=== PATIENT | female | born 1985 | race Hispanic/Latino ===

== ENCOUNTER 2018-11-22 04:54 | Emergency (ER) | payer OTHER, SELFPAY ==
[2018-11-22] MEDS ORDERED: Ondansetron PF 4 MG/2 ML Vial ONE (05:34)
== END 2018-11-22 06:55 | disposition home or self-care (01) ==
LOC: ERS 04:54
DX: F10.129 Alcohol abuse with intoxication, unspecified (principal)
CPT/HCPCS: 96361; 96374; J2405

== ENCOUNTER 2020-01-22 18:48 | Emergency (ER) | payer SELFPAY ==
[2020-01-22 19:42] LABS: #Basophils 0.1 thou/uL (0.0-0.2); #Eosinphils 0.3 thou/uL (0.0-0.7); #Lymphocytes 3.6 thou/uL (1.20-3.40); #Monocytes 0.8 thou/uL (0.11-0.59); #Neutrophils 8.3 thou/uL (1.40-6.50); %Basophils 0.7 % (0.0-1.0); %Eosinophils 2.2 % (0.0-10.0); %Lymphocytes 27.7 % (21.0-51.0); %Monocytes 5.9 % (0.0-10.0); %Neutrophils 63.6 % (42.0-75.0); Hemoglobin 14.1 g/dL (12.0-16.0); Mean Corpuscular HGB CONC 33.5 g/dL (32.0-36.0); Mean Corpuscular Hemoglobin 28.9 pg (27.0-31.0); Mean Corpuscular Volume 86.3 fL (78.0-98.0); Mean Platelet Volume 7.5 fL (7.4-10.4); Platelet Count 316 thou/uL (130-400); RBC Distribution Width 13.4 % (11.5-14.5); Red Blood Cell (RBC) Count 4.89 mill/uL (4.20-5.40); White Blood Cell (WBC) Count 13.1 thou/uL (4.8-10.8)
[2020-01-22 19:55] LABS: Bacteria/HPF None Seen HPF (None Seen); Bilirubin Negative (Negative); Blood, Urine 2+ (Negative); Clarity Clear (Clear); Glucose, Urine (Dipstick) Normal (Negative); Leukocyte 75 Leu/uL (Negative); Nitrite Negative (Negative); Pregnancy Test - Urine (BHCG) POSITIVE (Negative); Pregu Control Background? CLEAR/WHITE (CLR/WHITE); Pregu Control Bar Appear? YES (CONTROL BAR); Protein, Urine (Dipstick) Negative (Neg-Trace); RBC/HPF 0-3 HPF (0-3); Specific Gravity 1.021 (1.002-1.036); Urobilinogen Normal mg/dL (Less than 2); WBC/HPF 0-3 HPF (0-3)
[2020-01-22 20:04] LABS: ALT (SGPT) 22 U/L (8-55); AST (SGOT) 17 U/L (5-34); Albumin 4.1 g/dL (3.5-5.0); Alkaline Phosphatase 108 U/L (40-110); Anion Gap 13 mmol/L (10-20); BUN (Urea Nitrogen) 8 mg/dL (7.0-18.7); Bilirubin, Total 0.2 mg/dL (0.2-1.2); Calc. Creatinine Clearance 0 mL/min (70-130); Calcium 8.5 mg/dL (7.8-10.44); Carbon Dioxide 21 mmol/L (22-29); Chloride 109 mmol/L (98-107); Estimated GFR-MDRD Greater than 90; Globulin 2.9 g/dL (2.4-3.5); Glucose 97 mg/dL (70-105); Potassium 3.5 mmol/L (3.5-5.1); Sodium 139 mmol/L (136-145)
--- NOTE | 2020-01-22 21:58 | ULT ---
US Pelvic Transvag History: Pelvic pain Comparison: None. Findings: Real-time grayscale, color and spectral analysis of the pelvis performed transabdominal and transvaginal approach. The ovaries are normal with adequate vascular flow. No adnexal mass. Endometrium is thickened up 2 centimeter. No free fluid in the pelvis. No intrauterine . No free fluid in the pelvis. No intrauterine . Impression: 1. Normal adnexa without mass or ectopic. 2. No significant free fluid in pelvis. 3. Thickened endometrium can be seen with early although no IUP would be expected to be see n with such a low hCG. Close follow-up hCG and ultrasound recommended.
[2020-01-24 01:19] LABS: Chlamydia by PCR Not Detected (NotDetected); GC by PCR Not Detected (NotDetected)
== END 2020-01-22 23:38 | disposition home or self-care (01) ==
LOC: ERS 18:48
DX: O23.591 Infection of other part of genital tract in pregnancy, first trimester (principal); B96.89 Other specified bacterial agents as the cause of diseases classified elsewhere
CPT/HCPCS: 76856; 80053; 81003; 81015; 81025; 84702; 85025; 87480; 87491; 87510; 87591; 87660

== ENCOUNTER 2020-02-20 20:20 | Emergency (ER) | payer SELFPAY ==
[2020-02-20 20:52] LABS: #Basophils 0.1 thou/uL (0.0-0.2); #Eosinphils 0.3 thou/uL (0.0-0.7); #Lymphocytes 3.7 thou/uL (1.20-3.40); #Neutrophils 8.7 thou/uL (1.40-6.50); %Basophils 0.5 % (0.0-1.0); %Eosinophils 1.9 % (0.0-10.0); %Lymphocytes 27.2 % (21.0-51.0); %Monocytes 7.2 % (0.0-10.0); %Neutrophils 63.2 % (42.0-75.0); Hemoglobin 12.9 g/dL (12.0-16.0); Mean Corpuscular HGB CONC 33.9 g/dL (32.0-36.0); Mean Corpuscular Volume 88.4 fL (78.0-98.0); Mean Platelet Volume 7.3 fL (7.4-10.4); Platelet Count 324 thou/uL (130-400); RBC Distribution Width 13.6 % (11.5-14.5); Red Blood Cell (RBC) Count 4.31 mill/uL (4.20-5.40); White Blood Cell (WBC) Count 13.7 thou/uL (4.8-10.8)
[2020-02-20 21:04] LABS: Bilirubin Negative (Negative); Blood, Urine Trace (Negative); Clarity Clear (Clear); Glucose, Urine (Dipstick) Normal (Negative); Leukocyte Negative Leu/uL (Negative); Nitrite Negative (Negative); Protein, Urine (Dipstick) Negative (Neg-Trace); RBC/HPF 0-3 HPF (0-3); Squamous Epithelial 0-3 HPF (0-3); Urobilinogen Normal mg/dL (Less than 2); WBC/HPF 0-3 HPF (0-3)
[2020-02-20 21:05] LABS: Bacteria/HPF Rare-Few HPF (None Seen)
[2020-02-20 21:06] LABS: ALT (SGPT) 27 U/L (8-55); AST (SGOT) 19 U/L (5-34); Albumin 3.9 g/dL (3.5-5.0); Alkaline Phosphatase 110 U/L (40-110); Anion Gap 13 mmol/L (10-20); BUN (Urea Nitrogen) 12 mg/dL (7.0-18.7); Bilirubin, Total 0.2 mg/dL (0.2-1.2); Calc. Creatinine Clearance 0 mL/min (70-130); Calcium 8.9 mg/dL (7.8-10.44); Carbon Dioxide 20 mmol/L (22-29); Chloride 106 mmol/L (98-107); Estimated GFR-MDRD 90; Glucose 98 mg/dL (70-105); Potassium 3.5 mmol/L (3.5-5.1); Protein, Total 6.9 g/dL (6.0-8.3); Sodium 135 mmol/L (136-145)
[2020-02-20] MEDS ORDERED: Ketorolac Tromethamine 30 MG/ML VIAL ONE (21:33)
[2020-02-20] MEDS ORDERED: Ondansetron ODT 4 MG TAB ONE (21:33)
[2020-02-20] MEDS ORDERED: Acetaminophen 500 MG TAB ONE (21:33)
--- NOTE | 2020-02-21 09:02 | ULT ---
PELVIC ULTRASOUND: COMPARISON: 01/28/2020. HISTORY: Right upper quadrant abdominal pain. Decreasing HCG level. TECHNIQUE: Multiplanar, gallegos scale, and color Doppler images were obtained in a transvaginal pelvic ultrasound. Spectral analysis of the Doppler waveforms of the ovaries was performed. FINDINGS: The uterus is normal in size and appearance without focal abnormality. The endometrial stripe is nor mal in thickness measuring 10 mm. A small amount of free fluid is seen in the pelvis. Both ovaries are normal in size and appearance a nd demonstrate normal internal flow. The previously seen region in the right adnexal region on the p rior ultrasound was not seen on today's examination. IMPRESSION: No significant pelvic abnormality. POS: [facility]
== END 2020-02-20 22:58 | disposition home or self-care (01) ==
LOC: ERS 20:20
DX: O20.0 Threatened abortion (principal); Z3A.13 13 weeks gestation of pregnancy
CPT/HCPCS: 36415; 76856; 80053; 81003; 81015; 84702; 85025; 96372; J1885; Q0162

== ENCOUNTER 2020-11-21 21:20 | Emergency (ER) | payer SELFPAY ==
[2020-11-22 05:14] LABS: SARS-CoV-2 PCR by NAA DETECTED (NotDetected)
== END 2020-11-21 22:40 | disposition home or self-care (01) ==
LOC: ERS 21:20
DX: U07.1 COVID-19 (principal)
CPT/HCPCS: 87635; 99284; U0003; U0005

== ENCOUNTER 2022-05-25 11:11 | Emergency (ER) | payer SELFPAY | END 2022-05-25 12:39 | disposition left against medical advice (07) | LOC: ERS 11:11 | DX: Z53.21 Procedure and treatment not carried out due to patient leaving prior to being seen by health care provider (principal) ==

== ENCOUNTER 2022-06-27 20:48 | Inpatient (IN) | payer SELFPAY ==
[2022-06-27 21:51] LABS: #Eosinphils 0.2 thou/uL (0.0-0.7); #Lymphocytes 3.8 thou/uL (1.20-3.40); #Monocytes 0.7 thou/uL (0.11-0.59); #Neutrophils 7.1 thou/uL (1.40-6.50); %Basophils 0.4 % (0.0-1.0); %Eosinophils 1.7 % (0.0-10.0); %Monocytes 6.3 % (0.0-10.0); %Neutrophils 59.7 % (42.0-75.0); Hemoglobin 13.6 g/dL (12.0-16.0); Mean Corpuscular HGB CONC 34.1 g/dL (32.0-36.0); Mean Corpuscular Volume 87.9 fL (78.0-98.0); Mean Platelet Volume 7.1 fL (7.4-10.4); Platelet Count 306 thou/uL (130-400); RBC Distribution Width 13.2 % (11.5-14.5); Red Blood Cell (RBC) Count 4.52 mill/uL (4.20-5.40); White Blood Cell (WBC) Count 11.9 thou/uL (4.8-10.8)
[2022-06-27 22:14] LABS: ALT (SGPT) 35 U/L (8-55); AST (SGOT) 27 U/L (5-34); Alkaline Phosphatase 109 U/L (40-110); Anion Gap 16 mmol/L (10-20); BUN (Urea Nitrogen) 15 mg/dL (7.0-18.7); Bilirubin, Total 0.4 mg/dL (0.2-1.2); Calc. Creatinine Clearance 0 mL/min (70-130); Carbon Dioxide 21 mmol/L (22-29); Chloride 105 mmol/L (98-107); Estimated GFR 99; Globulin 3.4 g/dL (2.4-3.5); Glucose 104 mg/dL (70-105); Potassium 3.6 mmol/L (3.5-5.1); Protein, Total 7.4 g/dL (6.0-8.3); Sodium 138 mmol/L (136-145)
[2022-06-27] MEDS ORDERED: HYDROcodone/Acetaminophen 5/325 mg Tablet ONE (22:59)
[2022-06-27] MEDS ORDERED: Acetaminophen 325 MG TAB ONE (23:00)
[2022-06-27] MEDS ORDERED: Labetalol HCl 100 MG/20 ML VIAL SLOW IVP PRN (23:21)
[2022-06-27] MEDS ORDERED: Ondansetron PF 4 MG/2 ML Vial IVP PRN (23:25)
[2022-06-27] MEDS ORDERED: Guaifenesin DM 100-10/5 ML UDCUP PO PRN (23:25)
[2022-06-27] MEDS ORDERED: Bisacodyl 10 MG SUPP PR PRN (23:25)
[2022-06-27] MEDS ORDERED: Bisacodyl 5 MG TAB PO PRN (23:25)
[2022-06-27] MEDS ORDERED: Calcium Carbonate 500 MG ChewTAB PO PRN (23:25)
[2022-06-27] MEDS ORDERED: Ondansetron ODT 4 MG TAB PO PRN (23:25)
[2022-06-27] MEDS ORDERED: Acetaminophen 650 MG Suppository PR PRN (23:25)
[2022-06-27] MEDS ORDERED: Senokot S 8.6-50 MG TAB PO PRN (23:25)
[2022-06-28 00:23] VITALS: BMI 35.4
[2022-06-28] MEDS: Sodium Chloride 0.9% 1,000 ML IV SCH ×2 (00:40→14:00)
[2022-06-28 01:30] LABS: Pregnancy Test - Urine (BHCG) Negative (Negative); Pregu Control Background? CLEAR/WHITE (CLR/WHITE); Pregu Control Bar Appear? YES (CONTROL BAR); Specific Gravity 1.013 (1.002-1.036)
[2022-06-28 01:33] LABS: Amphetamine Not Detected (NotDetected); Barbiturates Screen Not Detected (NotDetected); Benzodiazepine Screen Not Detected (NotDetected); Cocaine Metabolite Screen Not Detected (NotDetected); Methadone Not Detected (NotDetected); Methamphetamine Not Detected (NotDetected); Opiate Screen Detected (NotDetected); Oxycodone Screen Not Detected (NotDetected); Phencyclidine (PCP) Not Detected (NotDetected); THC/Cannabinoid Screen Not Detected (NotDetected); Tricyclic Screen Not Detected (NotDetected)
[2022-06-28 06:03] LABS: #Basophils 0.1 thou/uL (0.0-0.2); #Eosinphils 0.3 thou/uL (0.0-0.7); #Lymphocytes 3.4 thou/uL (1.20-3.40); #Monocytes 0.6 thou/uL (0.11-0.59); #Neutrophils 5.4 thou/uL (1.40-6.50); %Basophils 0.7 % (0.0-1.0); %Eosinophils 2.8 % (0.0-10.0); %Lymphocytes 35.1 % (21.0-51.0); %Monocytes 6.1 % (0.0-10.0); %Neutrophils 55.4 % (42.0-75.0); Hemoglobin 12.6 g/dL (12.0-16.0); Mean Corpuscular HGB CONC 33.1 g/dL (32.0-36.0); Mean Corpuscular Hemoglobin 29.2 pg (27.0-31.0); Mean Corpuscular Volume 88.3 fL (78.0-98.0); Mean Platelet Volume 7.2 fL (7.4-10.4); Platelet Count 285 thou/uL (130-400); RBC Distribution Width 13.1 % (11.5-14.5); White Blood Cell (WBC) Count 9.7 thou/uL (4.8-10.8)
[2022-06-28 06:09] LABS: Hemoglobin A1c 5.7 % (4.0-6.0)
[2022-06-28 06:27] LABS: Cardiac Risk 4.3 (Less than 4.5)
[2022-06-28] MEDS: Famotidine 20 MG TAB PO SCH ×2 (08:29→21:03)
[2022-06-28] MEDS: Aspirin 81 mg Enteric Coated Tablet PO SCH (08:29)
[2022-06-28] MEDS: Famotidine/PF 20 mg/2ml Vial SLOW IVP SCH ×2 (08:29→21:21)
[2022-06-28] MEDS: Heparin 5,000 UNITS/ML VIAL SC SCH ×2 (08:29→21:02)
[2022-06-28] MEDS: Acetaminophen 325 MG TAB PO PRN ×3 (08:38→21:03)
[2022-06-28] MEDS ORDERED: Magnevist 469MG/ML 20 ML VIAL ONE (15:31)
[2022-06-28 18:32] LABS: PTT 31.4 sec (22.9-36.1); Prothrombin Time 13.4 sec (12.0-14.7)
[2022-06-28 18:33] LABS: D-Dimer Test Less than 0.27 *mcg/mL (0.27-0.43)
[2022-06-28] MEDS: Atorvastatin Calcium 40 MG TAB PO SCH (21:03)
[2022-06-28] MEDS ORDERED: Topiramate 25 MG TAB PO SCH (23:00)
[2022-06-29] MEDS: Acetaminophen 325 MG TAB PO PRN (06:18)
[2022-06-29] MEDS: Famotidine 20 MG TAB PO SCH ×2 (08:32→21:42)
[2022-06-29] MEDS: Heparin 5,000 UNITS/ML VIAL SC SCH ×2 (08:32→21:42)
[2022-06-29] MEDS: Topiramate 25 MG TAB PO SCH ×2 (08:32→21:41)
[2022-06-29] MEDS: Aspirin 81 mg Enteric Coated Tablet PO SCH (08:32)
[2022-06-29] MEDS: Famotidine/PF 20 mg/2ml Vial SLOW IVP SCH ×2 (08:33→21:41)
[2022-06-29] MEDS: diphenhydrAMINE 50 MG/ML VIAL IVP SCH ×2 (15:45→21:32)
[2022-06-29] MEDS: Prochlorperazine 10 MG/2 ML VIAL IVP SCH ×2 (15:45→21:48)
[2022-06-29] MEDS ORDERED: ALPRAZolam 0.5 MG TAB PO SCH (18:30)
[2022-06-29] MEDS ORDERED: ALPRAZolam 0.25 MG TAB PO SCH (18:45)
[2022-06-29] MEDS: Atorvastatin Calcium 40 MG TAB PO SCH (21:41)
[2022-06-30] MEDS: diphenhydrAMINE 50 MG/ML VIAL IVP SCH ×2 (03:10→09:39)
[2022-06-30] MEDS: Prochlorperazine 10 MG/2 ML VIAL IVP SCH ×2 (03:10→09:43)
[2022-06-30] MEDS: Famotidine 20 MG TAB PO SCH (09:38)
[2022-06-30] MEDS: Aspirin 81 mg Enteric Coated Tablet PO SCH (09:38)
[2022-06-30] MEDS: Topiramate 25 MG TAB PO SCH (09:39)
[2022-06-30] MEDS: Famotidine/PF 20 mg/2ml Vial SLOW IVP SCH (09:39)
[2022-06-30] MEDS: Heparin 5,000 UNITS/ML VIAL SC SCH (09:41)
[2022-06-30] MEDS: Acetaminophen 325 MG TAB PO PRN (09:42)
[2022-06-30 15:55] VITALS: BP 101/64; TEMP 98.1
[2022-06-30 18:47] LABS: Cardiolipin IgA Ab 2.9 APL-U/mL (<14 Negative); Cardiolipin IgG Ab 1.4 GPL-U/mL (<10 Negative); Cardiolipin IgM Ab 1.1 MPL-U/mL (<10 Negative); EliA APS New Method **** NEW METHOD ****
== END 2022-06-30 16:47 | disposition home or self-care (01) | DRG 74 ==
LOC: ERS 20:48 → OBSVTOIN 23:06 → NEURO 23:06
PROVIDERS: ADMIT Internal Medicine; ATTEND Internal Medicine
DX: G51.0 Bell's palsy (principal); G45.9 Transient cerebral ischemic attack, unspecified; I69.354 Hemiplegia and hemiparesis following cerebral infarction affecting left non-dominant side; Z20.822 Contact with and (suspected) exposure to COVID-19; D72.829 Elevated white blood cell count, unspecified; F41.9 Anxiety disorder, unspecified; G47.00 Insomnia, unspecified; H02.409 Unspecified ptosis of unspecified eyelid; R51.9 Headache, unspecified; Z98.51 Tubal ligation status; I69.392 Facial weakness following cerebral infarction; I69.312 Visuospatial deficit and spatial neglect following cerebral infarction
CPT/HCPCS: 36415; 70450; 70553; 80053; 80061; 80306; 81025; 83036; 83090; 84484; 85025; 85240; 85300; 85303; 85305; 85307; 85379; 85598; 85610; 85730; 86147; 93005; 93306; 93880; 95816; 95819; 95957; A9579; J0780; J1200; J1644; J7050; S0028; U0003; U0005

== ENCOUNTER 2023-09-15 23:28 | Inpatient (IN) | payer MEDICAID, SELFPAY ==
[~2023-09-15 23:28] MED LIST: Iopamidol 370 76% 100 ML VIAL ONE
[2023-09-15 23:54] LABS: Hematocrit 37.4 % (36.0-47.0); Hemoglobin 12.4 g/dL (12.0-16.0); Mean Corpuscular HGB CONC 33.2 g/dL (32.0-36.0); Mean Corpuscular Hemoglobin 27.7 pg (27.0-31.0); Mean Corpuscular Volume 83.5 fl (78.0-98.0); Mean Platelet Volume 9.3 fL (7.4-10.4); Platelet Count 346 10x3/uL (130-400); RBC Distribution Width 15.3 % (11.5-14.5); Red Blood Cell (RBC) Count 4.48 mill/uL (4.20-5.40); White Blood Cell (WBC) Count 14.2 10x3/uL (4.8-10.8)
[2023-09-16] MEDS ORDERED: Aspirin Chewable 81 MG TAB ONE ×2 (00:06→08:51)
[2023-09-16 00:08] LABS: PTT 30.3 sec (22.9-36.1)
[2023-09-16 00:10] LABS: Delete Auto Diff?? YES; Manual Diff?? YES
[2023-09-16 00:16] LABS: ALT (SGPT) 27 U/L (8-55); AST (SGOT) 19 U/L (5-34); Albumin 3.9 g/dL (3.5-5.0); Alkaline Phosphatase 122 U/L (40-110); Anion Gap 13 mmol/L (10-20); BUN (Urea Nitrogen) 12 mg/dL (7.0-18.7); Bilirubin, Total 0.2 mg/dL (0.2-1.2); Calc. Creatinine Clearance 0 mL/min (70-130); Calcium 8.8 mg/dL (7.8-10.44); Carbon Dioxide 22 mmol/L (22-29); Chloride 108 mmol/L (98-107); Estimated GFR 102; Globulin 3.5 g/dL (2.4-3.5); Glucose 119 mg/dL (70-105); Potassium 3.2 mmol/L (3.5-5.1); Protein, Total 7.4 g/dL (6.0-8.3); Sodium 140 mmol/L (136-145)
[2023-09-16 00:21] LABS: Troponin I Less than 0.010 ng/mL (< 0.028)
[2023-09-16 00:56] LABS: Band 1 % (5-11); CellaVision Operator ID LAB.JMM; Eosinophils 2 % (0-10); Lymphocytes 20 % (21-51); Monocytes 5 % (0-10); Neutrophil 72 % (42-75); Platelet Adequacy Comment Platelets Normal; RBC Morphology Within Normal Limits; Smudge Cells 30.3 %; Total Cell Count 99
[2023-09-16] MEDS ORDERED: Ondansetron PF 4 MG/2 ML Vial IVP PRN (01:11)
[2023-09-16] MEDS ORDERED: Labetalol HCl 100 MG/20 ML VIAL SLOW IVP PRN (01:11)
[2023-09-16] MEDS ORDERED: hydrALAZINE 20 MG/ML VIAL SLOW IVP PRN (01:11)
[2023-09-16] MEDS ORDERED: Potassium Bicarbonate/Cit Ac 20 MEQ TAB PO SCH (01:15)
[2023-09-16 02:24] LABS: Bacteria/HPF None Seen HPF (None Seen); Bilirubin Negative (Negative); Blood, Urine Trace (Negative); CAUTI Indications for Culture Alt mental st,lethar; Clarity Clear (Clear); Glucose, Urine (Dipstick) Normal (Negative); Ketone, Urine Negative (Negative); Leukocyte Negative Leu/uL (Negative); Nitrite Negative (Negative); Protein, Urine (Dipstick) Negative (Neg-Trace); RBC/HPF 0-3 HPF (0-3); Squamous Epithelial 0-3 HPF (0-3); Urobilinogen Normal mg/dL (Less than 2); WBC/HPF 0-3 HPF (0-3); pH, Urine 5.5 (5.0-9.0)
[2023-09-16 02:27] LABS: Specific Gravity, Urine Greater than 1.060 (1.002-1.036)
[2023-09-16 02:28] LABS: Urine Culture Reflex No No
[2023-09-16] MEDS ORDERED: Potassium Bicarbonate/Cit Ac 20 MEQ TAB ONE (04:44)
[2023-09-16 05:21] LABS: #Eosinphils 0.3 thou/uL (0.0-0.7); #Monocytes 0.8 thou/uL (0.11-0.59); #Neutrophils 6.6 thou/uL (1.40-6.50); %Basophils 0.4 % (0.0-1.0); %Eosinophils 2.3 % (0.0-10.0); %Lymphocytes 32.9 % (21.0-51.0); %Monocytes 6.6 % (0.0-10.0); %Neutrophils 57.6 % (42.0-75.0); Hematocrit 36.2 % (36.0-47.0); Hemoglobin 11.7 g/dL (12.0-16.0); Mean Corpuscular HGB CONC 32.3 g/dL (32.0-36.0); Mean Corpuscular Hemoglobin 27.2 pg (27.0-31.0); Mean Corpuscular Volume 84.2 fl (78.0-98.0); Mean Platelet Volume 9.4 fL (7.4-10.4); Platelet Count 315 10x3/uL (130-400); RBC Distribution Width 15.4 % (11.5-14.5); White Blood Cell (WBC) Count 11.4 10x3/uL (4.8-10.8)
[2023-09-16 06:08] LABS: Anion Gap 13 mmol/L (10-20); BUN (Urea Nitrogen) 12 mg/dL (7.0-18.7); Calc. Creatinine Clearance 0 mL/min (70-130); Calcium 8.9 mg/dL (7.8-10.44); Carbon Dioxide 21 mmol/L (22-29); Cardiac Risk 5.3 (Less than 4.5); Chloride 108 mmol/L (98-107); Cholesterol 186 mg/dl (< 200 Desired); Estimated GFR 116; Glucose 106 mg/dL (70-105); HDL Cholesterol 35 mg/dL (>60 Neg Risk); LDL Cholesterol, Calculated 110 mg/dL; Magnesium 2.3 mg/dL (1.6-2.6); Potassium 3.5 mmol/L (3.5-5.1); Sodium 138 mmol/L (136-145); Triglycerides 205 mg/dL (Less than 150)
[2023-09-16] MEDS ORDERED: Acetaminophen 325 MG TAB ONE (08:50)
[2023-09-16] MEDS: Aspirin 81 mg Enteric Coated Tablet PO SCH (08:55)
[2023-09-16] MEDS: Acetaminophen 325 MG TAB PO PRN ×2 (08:55→23:16)
[2023-09-16 13:39] VITALS: BMI 34.9
[2023-09-16 20:49] LABS: INR-International Normal Ratio 1.1; PTT 27.9 sec (22.9-36.1); Prothrombin Time 14.4 sec (12.0-14.7)
[2023-09-16 20:59] LABS: D-Dimer Test Less than 0.27 *mcg/mL (0.27-0.43)
[2023-09-16] MEDS: Atorvastatin Calcium 40 MG TAB PO SCH (21:04)
[2023-09-17 05:14] LABS: #Basophils 0.1 thou/uL (0.0-0.2); #Eosinphils 0.3 thou/uL (0.0-0.7); #Monocytes 0.7 thou/uL (0.11-0.59); #Neutrophils 5.3 thou/uL (1.40-6.50); %Basophils 0.5 % (0.0-1.0); %Lymphocytes 34.8 % (21.0-51.0); %Neutrophils 54.3 % (42.0-75.0); Hematocrit 36.7 % (36.0-47.0); Mean Corpuscular HGB CONC 32.7 g/dL (32.0-36.0); Mean Corpuscular Hemoglobin 27.1 pg (27.0-31.0); Mean Platelet Volume 9.8 fL (7.4-10.4); Platelet Count 343 10x3/uL (130-400); RBC Distribution Width 15.4 % (11.5-14.5); Red Blood Cell (RBC) Count 4.42 mill/uL (4.20-5.40); White Blood Cell (WBC) Count 9.8 10x3/uL (4.8-10.8)
[2023-09-17 05:53] LABS: Anion Gap 14 mmol/L (10-20); BUN (Urea Nitrogen) 13 mg/dL (7.0-18.7); Calc. Creatinine Clearance 141 mL/min (70-130); Calcium 8.4 mg/dL (7.8-10.44); Carbon Dioxide 21 mmol/L (22-29); Chloride 108 mmol/L (98-107); Estimated GFR 109; Glucose 117 mg/dL (70-105); Magnesium 2.1 mg/dL (1.6-2.6); Potassium 3.6 mmol/L (3.5-5.1); Sodium 139 mmol/L (136-145)
[2023-09-17] MEDS: Aspirin 81 mg Enteric Coated Tablet PO SCH (09:35)
[2023-09-17] MEDS: traMADol HCl 50 MG TAB PO PRN ×2 (09:37→21:31)
[2023-09-17 12:48] LABS: HEX PHOS LA Tube 1 38.3 SEC; HEX PHOS LA Tube 2 36.1 SEC; Hexagonal Phospholipid Neut 2.2 SEC (0-8.0); Protein C Activity 118 % (78-152)
[2023-09-17 15:05] LABS: Cardiolipin IgA Ab 3.8 APL-U/mL (<14 Negative); Cardiolipin IgG Ab 1.7 GPL-U/mL (<10 Negative); Cardiolipin IgM Ab 1.1 MPL-U/mL (<10 Negative); EliA APS New Method **** NEW METHOD ****
[2023-09-17] MEDS: Atorvastatin Calcium 40 MG TAB PO SCH (21:31)
[2023-09-17] MEDS: Acetaminophen 325 MG TAB PO PRN (23:21)
[2023-09-18] MEDS: Aspirin 81 mg Enteric Coated Tablet PO SCH (08:48)
[2023-09-18] MEDS ORDERED: Clopidogrel Bisulfate 75 MG TAB PO SCH (11:45)
[2023-09-18] MEDS: Atorvastatin Calcium 40 MG TAB PO SCH (20:39)
[2023-09-18] MEDS: traMADol HCl 50 MG TAB PO PRN (20:39)
[2023-09-19 04:42] LABS: #Eosinphils 0.3 thou/uL (0.0-0.7); #Monocytes 0.7 thou/uL (0.11-0.59); #Neutrophils 7.9 thou/uL (1.40-6.50); %Basophils 0.3 % (0.0-1.0); %Eosinophils 2.6 % (0.0-10.0); %Lymphocytes 26.3 % (21.0-51.0); %Neutrophils 64.4 % (42.0-75.0); Hematocrit 38.7 % (36.0-47.0); Hemoglobin 12.4 g/dL (12.0-16.0); Mean Corpuscular Volume 84.1 fl (78.0-98.0); Mean Platelet Volume 9.7 fL (7.4-10.4); Platelet Count 353 10x3/uL (130-400); RBC Distribution Width 15.3 % (11.5-14.5); White Blood Cell (WBC) Count 12.2 10x3/uL (4.8-10.8)
[2023-09-19 05:02] LABS: Anion Gap 14 mmol/L (10-20); BUN (Urea Nitrogen) 13 mg/dL (7.0-18.7); Calc. Creatinine Clearance 143 mL/min (70-130); Calcium 8.9 mg/dL (7.8-10.44); Carbon Dioxide 20 mmol/L (22-29); Chloride 106 mmol/L (98-107); Estimated GFR 111; Glucose 117 mg/dL (70-105); Potassium 3.8 mmol/L (3.5-5.1); Sodium 136 mmol/L (136-145)
[2023-09-19] MEDS: Aspirin 81 mg Enteric Coated Tablet PO SCH (10:00)
[2023-09-19] MEDS: Acetaminophen 325 MG TAB PO PRN (12:52)
[2023-09-19] MEDS: Atorvastatin Calcium 40 MG TAB PO SCH (21:12)
[2023-09-20] MEDS: Acetaminophen 325 MG TAB PO PRN ×2 (05:00→22:22)
[2023-09-20 05:05] LABS: #Basophils 0.1 thou/uL (0.0-0.2); #Eosinphils 0.4 thou/uL (0.0-0.7); #Monocytes 0.8 thou/uL (0.11-0.59); #Neutrophils 7.2 thou/uL (1.40-6.50); %Basophils 0.4 % (0.0-1.0); %Eosinophils 3.4 % (0.0-10.0); %Lymphocytes 27.3 % (21.0-51.0); %Monocytes 6.9 % (0.0-10.0); %Neutrophils 61.5 % (42.0-75.0); Hematocrit 39.5 % (36.0-47.0); Hemoglobin 12.8 g/dL (12.0-16.0); Mean Corpuscular HGB CONC 32.4 g/dL (32.0-36.0); Mean Corpuscular Hemoglobin 26.9 pg (27.0-31.0); Mean Corpuscular Volume 83.2 fl (78.0-98.0); Mean Platelet Volume 9.6 fL (7.4-10.4); Platelet Count 354 10x3/uL (130-400); RBC Distribution Width 15.3 % (11.5-14.5); Red Blood Cell (RBC) Count 4.75 mill/uL (4.20-5.40); White Blood Cell (WBC) Count 11.6 10x3/uL (4.8-10.8)
[2023-09-20 05:31] LABS: Anion Gap 12 mmol/L (10-20); BUN (Urea Nitrogen) 13 mg/dL (7.0-18.7); Calc. Creatinine Clearance 136 mL/min (70-130); Calcium 8.9 mg/dL (7.8-10.44); Carbon Dioxide 21 mmol/L (22-29); Chloride 107 mmol/L (98-107); Estimated GFR 104; Glucose 126 mg/dL (70-105); Potassium 3.7 mmol/L (3.5-5.1); Sodium 136 mmol/L (136-145)
[2023-09-20] MEDS: Aspirin 81 mg Enteric Coated Tablet PO SCH (09:28)
[2023-09-20] MEDS: Atorvastatin Calcium 40 MG TAB PO SCH (22:22)
[2023-09-21 04:20] LABS: #Eosinphils 0.3 thou/uL (0.0-0.7); #Neutrophils 8.7 thou/uL (1.40-6.50); %Basophils 0.2 % (0.0-1.0); %Eosinophils 2.5 % (0.0-10.0); %Lymphocytes 24.7 % (21.0-51.0); %Monocytes 7.4 % (0.0-10.0); %Neutrophils 64.8 % (42.0-75.0); Hematocrit 37.5 % (36.0-47.0); Hemoglobin 12.1 g/dL (12.0-16.0); Mean Corpuscular HGB CONC 32.3 g/dL (32.0-36.0); Mean Corpuscular Hemoglobin 27.2 pg (27.0-31.0); Mean Corpuscular Volume 84.3 fl (78.0-98.0); Mean Platelet Volume 9.7 fL (7.4-10.4); Platelet Count 344 10x3/uL (130-400); RBC Distribution Width 15.4 % (11.5-14.5); Red Blood Cell (RBC) Count 4.45 mill/uL (4.20-5.40); White Blood Cell (WBC) Count 13.4 10x3/uL (4.8-10.8)
[2023-09-21 04:44] LABS: Anion Gap 11 mmol/L (10-20); BUN (Urea Nitrogen) 14 mg/dL (7.0-18.7); Calc. Creatinine Clearance 132 mL/min (70-130); Calcium 8.9 mg/dL (7.8-10.44); Carbon Dioxide 22 mmol/L (22-29); Chloride 107 mmol/L (98-107); Estimated GFR 101; Glucose 118 mg/dL (70-105); Potassium 3.6 mmol/L (3.5-5.1); Sodium 136 mmol/L (136-145)
[2023-09-21] MEDS: Aspirin 81 mg Enteric Coated Tablet PO SCH (08:47)
[2023-09-21] MEDS: Atorvastatin Calcium 40 MG TAB PO SCH (21:00)
[2023-09-21] MEDS: Acetaminophen 325 MG TAB PO PRN (21:00)
[2023-09-22 04:22] LABS: #Eosinphils 0.4 thou/uL (0.0-0.7); #Monocytes 0.8 thou/uL (0.11-0.59); %Basophils 0.3 % (0.0-1.0); %Eosinophils 2.7 % (0.0-10.0); %Lymphocytes 28.4 % (21.0-51.0); %Monocytes 6.2 % (0.0-10.0); %Neutrophils 61.9 % (42.0-75.0); Hemoglobin 12.1 g/dL (12.0-16.0); Mean Corpuscular HGB CONC 32.7 g/dL (32.0-36.0); Mean Corpuscular Hemoglobin 27.3 pg (27.0-31.0); Mean Corpuscular Volume 83.5 fl (78.0-98.0); Mean Platelet Volume 9.7 fL (7.4-10.4); Platelet Count 354 10x3/uL (130-400); RBC Distribution Width 15.2 % (11.5-14.5); Red Blood Cell (RBC) Count 4.43 mill/uL (4.20-5.40); White Blood Cell (WBC) Count 12.9 10x3/uL (4.8-10.8)
[2023-09-22 04:48] LABS: Anion Gap 11 mmol/L (10-20); BUN (Urea Nitrogen) 15 mg/dL (7.0-18.7); Calc. Creatinine Clearance 134 mL/min (70-130); Carbon Dioxide 23 mmol/L (22-29); Chloride 107 mmol/L (98-107); Estimated GFR 102; Glucose 130 mg/dL (70-105); Potassium 3.8 mmol/L (3.5-5.1); Sodium 137 mmol/L (136-145)
[2023-09-22] MEDS ORDERED: Lidocaine 1% w/Epinephrine 1:100K 20 ML VIAL ONE (08:21)
[2023-09-22] MEDS: Aspirin 81 mg Enteric Coated Tablet PO SCH (09:37)
[2023-09-22] MEDS ORDERED: Propofol 500 MG/50 ML VIAL ONE (13:37)
[2023-09-22] MEDS ORDERED: Lidocaine 1% PF 5 ML VIAL ONE ×2 (13:37→13:40)
[2023-09-22] MEDS ORDERED: PROPOFOL 200 MG/20 ML VIAL ONE (13:40)
[2023-09-22 14:56] VITALS: BP 109/72; TEMP 98.1
[2023-09-24 17:13] LABS: Activated Protein C Resistance 2.5 ratio (.)
== END 2023-09-22 18:20 | disposition home or self-care (01) | DRG 41 ==
LOC: ERS 23:28 → ERHOLD 09-16 00:55 → 2SE 09-16 14:26 → OBSVTOIN 09-17 14:55
PROVIDERS: ADMIT Internal Medicine; ATTEND Internal Medicine
PROC: B245ZZ4 Ultrasonography of Left Heart, Transesophageal (ICD-10-PCS; principal; 2023-09-22)
PROC: 0JH602Z Insertion of Monitoring Device into Chest Subcutaneous Tissue and Fascia, Open Approach (ICD-10-PCS; 2023-09-22)
DX: G45.9 Transient cerebral ischemic attack, unspecified (principal); Q21.12 Patent foramen ovale; R29.90 Unspecified symptoms and signs involving the nervous system; M47.812 Spondylosis without myelopathy or radiculopathy, cervical region; R20.0 Anesthesia of skin; D72.829 Elevated white blood cell count, unspecified; E87.6 Hypokalemia; E66.9 Obesity, unspecified; E78.5 Hyperlipidemia, unspecified; I07.1 Rheumatic tricuspid insufficiency; I70.0 Atherosclerosis of aorta; Z79.82 Long term (current) use of aspirin; Z79.899 Other long term (current) drug therapy; Z98.51 Tubal ligation status; Z86.73 Personal history of transient ischemic attack (TIA), and cerebral infarction without residual deficits; Z68.35 Body mass index [BMI] 35.0-35.9, adult; Z71.89 Other specified counseling
CPT/HCPCS: 33285; 36415; 36416; 70450; 70496; 70498; 70551; 72141; 80048; 80053; 80061; 81001; 83090; 83735; 84484; 85025; 85300; 85303; 85305; 85307; 85379; 85598; 85610; 85730; 86147; 93005; 93306; 93312; C1764; G0378; J2704; Q9967

== ENCOUNTER 2024-09-06 14:18 | Emergency (ER) | payer SELFPAY | END 2024-09-06 16:55 | disposition home or self-care (01) | LOC: ERS 14:18 | DX: G43.809 Other migraine, not intractable, without status migrainosus (principal); M54.2 Cervicalgia | CPT/HCPCS: 70450; 93005 ==